=== PATIENT | male | born 1955 | race Caucasian/White ===

== ENCOUNTER 2020-05-08 14:25 | Emergency (ER) | payer OTHER ==
[~2020-05-08] VITALS: Ht 185.4 cm; Wt 77.1 kg
[2020-05-08 14:27] VITALS: BP 127/72
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
--- NOTE | 2020-05-08 14:29 | NUR ---
ED Nurse Note: [employer] at the bed side.
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
[2020-05-08] MEDS ORDERED: Acetaminophen 500mg (ES) tab ORAL ONE (14:45)
[2020-05-08] MEDS ORDERED: Tetanus/Diptheria/Pertussis IM ONE (14:45)
--- NOTE | 2020-05-08 14:45 | NUR ---
ED Nurse Note: Pt taken to xray in stable conditon.
--- NOTE | 2020-05-08 15:11 | NUR ---
ED Nurse Note: Pt came back from xray and stable.
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
[2020-05-08] MEDS ORDERED: ACETAMINOPHEN325 M1 ORAL (16:13)
[2020-05-08 16:23] VITALS: BP 119/76
--- NOTE | 2020-05-08 16:23 | NUR ---
ER DISCHARGE NOTE: Patient is cleared to be discharged per ERMD, pt is aox4, on room air, with stable vital signs. pt was given dc and prescription instructions, pt was able to verbalize understanding, pt id band removed. pt is able to ambulate with steady gait. pt took all belongings.
[2020-05-09] MEDS ORDERED: NORCO 5-325 TA1 EAC1 ORAL ×3 (17:33→17:55)
[2020-05-09] MEDS ORDERED: LIDODERM700 M1 TOPIC ×3 (17:33→17:55)
== END 2020-05-08 16:23 | disposition home or self-care (01) ==
LOC: EDBD 14:25 → EMR 14:50
DX: S20.211A Contusion of right front wall of thorax, initial encounter (principal); V03.90XA Pedestrian on foot injured in collision with car, pick-up truck or van, unspecified whether traffic or nontraffic accident, initial encounter; Y92.410 Unspecified street and highway as the place of occurrence of the external cause; Z88.8 Allergy status to other drugs, medicaments and biological substances; S60.511A Abrasion of right hand, initial encounter; Z23 Encounter for immunization
CPT/HCPCS: 71101; 73130; 90471; 90715; Z7502; 99284

== ENCOUNTER 2020-05-09 14:33 | Emergency (ER) | payer OTHER ==
[~2020-05-09] VITALS: Ht 185.4 cm; Wt 77.1 kg
[~2020-05-09 14:33] MED LIST: ACETAMINOPHEN325 M1 ORAL
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
[2020-05-09] MEDS ORDERED: HYDROcodone/Acetamin 5/325 tab ORAL ONE (15:15)
--- NOTE | 2020-05-09 15:33 | NUR ---
ED Nurse Note: Patient is going home by bus. No family member available at this time. Lisa Gar notified. Addendum: 05/09/20 at 1534 by RENZO will change medication.
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
[2020-05-09] MEDS ORDERED: Tylenol #3 tab (300mg/30mg) ORAL ONE (16:30)
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
--- NOTE | 2020-05-09 17:24 | NUR ---
ED Nurse Note: Patient resting in bed. Regular, unlabored breathing noted.
[2020-05-09] MEDS ORDERED: LIDODERM700 M1 TOPIC ×3 (17:33→17:55)
[2020-05-09] MEDS ORDERED: NORCO 5-325 TA1 EAC1 ORAL ×3 (17:33→17:55)
[2020-05-09 18:10] VITALS: BP 129/79
--- NOTE | 2020-05-09 18:10 | NUR ---
ER DISCHARGE NOTE: Patient is cleared to be discharged per ERMD. Patient awake, alert, oriented x 4. Regular, unlabored breathing noted. D/C instruction given and prescription sent electronically. Patient verbalized understanding of it. Patient ambulated out with steady gait with all his belongings.
== END 2020-05-09 18:10 | disposition home or self-care (01) ==
LOC: EMR 14:55
DX: S20.211A Contusion of right front wall of thorax, initial encounter (principal); N40.0 Benign prostatic hyperplasia without lower urinary tract symptoms; Z88.8 Allergy status to other drugs, medicaments and biological substances; V03.90XA Pedestrian on foot injured in collision with car, pick-up truck or van, unspecified whether traffic or nontraffic accident, initial encounter; Y92.410 Unspecified street and highway as the place of occurrence of the external cause; K42.9 Umbilical hernia without obstruction or gangrene
CPT/HCPCS: 71250; 74176; Z7502; 99284